=== PATIENT | male | born 1940 | race Caucasian/White ===

== ENCOUNTER 2016-06-12 12:19 | Day surgery (SDC) | payer MEDICARE ==
[2016-06-08 11:43] LABS: HEMATOCRIT 41.4 % (40.0-51.0)
[2016-06-08 11:53] LABS: BUN (BLOOD UREA NITROGEN) 31 MG/DL (6-23); CALCIUM, SERUM 8.7 MG/DL (8.5-10.4); CHLORIDE, SERUM 103 MMOL/L (96-112); CO2 (CARBON DIOXIDE) 28 MMOL/L (24-34); CREATININE 1.45 MG/DL (0.70-1.30); GFR AFRICAN AMERICAN 55 ML/MIN (>=60); GFR NON AFRICAN AMERICAN 47 ML/MIN (>=60); GLUCOSE, SERUM 90 MG/DL (60-99); POTASSIUM, SERUM 4.4 MMOL/L (3.5-5.3); SODIUM, SERUM 139 MMOL/L (135-148)
--- NOTE | ~2016-06-12 | OP ---
Record Of Operation [facility] [address] [place]. 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 PROCEDURE PERFORMED: 1. Wide local excision of left martinez cavum skin and cartilage, with 3.2 x 2.0 cm defect. 2. Full-thickness skin graft reconstruction of 3.2 x 2.0 cm defect, left supraclavicular fossa donor site. SURGEON: Bee Reilly M.D. CLIENT SERVICES COORDINATOR: None. ANESTHESIA: General. COMPLICATIONS: None. CONDITION: Stable to recovery. INDICATIONS: 76-year-old male, with recurrence of basal cell carcinoma of the left martinez cavum. PROCEDURE IN DETAIL: The patient identified in preoperative holding, taken back to the operating room, and placed supine on the operating room table. General anesthesia was established with LMA. The left ear was examined and a small ulcer was noted in bed around the scar. A 4 to 5 mm margin was marked around this ulceration, and infiltrated subcutaneously with 1% lidocaine with 1:100,000 epinephrine, a total of 3 mL. The time-out had been called, the patient and procedure were confirmed. After prepping and draping the patient in the standard fashion. The operation commenced. Using 2.5x loupe magnification and headlight illumination, I made an incision around the lesion, where it had been marked with a surgical ink pen, and used a 15 blade going down to the cartilage. This specimen was excised circumferentially leaving the cartilage intact. This specimen was inked at 12 o'clock, it had multiple positive margins. It was reexcised multiple times following this and told the margins were cleared. The defect ended up being 3.2 x 2.0 cm in dimension and we took the perichondrium with the specimen, so, we ended up taking the cartilage from the martinez cavum and skin grafting in the postauricular skin. The defect was 3.2 x 2.0 cm. The left supraclavicular full-thickness skin graft was harvested, defatted, and meshed with a 15 blade, and inset with 4-0 chromic suture. A Xeroform gauze bolster was placed and then the supraclavicular fossa defect was closed in layers using 4-0 Vicryl and a 5-0 running Prolene. The patient tolerated the procedure well. There were no complications. Record Of Operation [facility] [id number] [place]. [address] NAME: SHAMA RESENDEZ : 44 STATUS : REG [facility]#: [id number] AGE: 76 ADM/REG DATE : 06/12/16 MR#: [id number] REPORT SERV DATE: 06/12/16 DICTATED BY: BEE REILLY DATE: 06/12/16 REPORT STATUS : Draft TRANSCRIBED BY: ADDY DATE: 06/12/16 PH/ADDY Bee Reilly M.D. / [id number] CC: Bee Reilly M.D.
[~2016-06-12 12:19] MED LIST: BENICAR20 PO; CARDU4 PO; LEVOTHYROXIN112 MCG PO; LIPITOR20 PO; PROSCAR5 PO; TRAZ100 PO; XARELTO20 MG PO; XOPEN0.5ML INH; ZYRTEC ALLGY10 MG PO
== END 2016-06-12 21:39 | disposition home or self-care (01) ==
LOC: SDC 12:19
PROVIDERS: Specialist
PROC: 0HR3X73 Replacement of Left Ear Skin with Autologous Tissue Substitute, Full Thickness, External Approach (ICD-10-PCS; principal; 2016-06-12 14:00)
PROC: 0HB5XZZ Excision of Chest Skin, External Approach (ICD-10-PCS; 2016-06-12 14:00)
DX: C44.219 Basal cell carcinoma of skin of left ear and external auricular canal (principal); I10 Essential (primary) hypertension; E78.00 Pure hypercholesterolemia, unspecified; E03.9 Hypothyroidism, unspecified; J45.909 Unspecified asthma, uncomplicated; M19.90 Unspecified osteoarthritis, unspecified site; Z86.711 Personal history of pulmonary embolism; Z88.6 Allergy status to analgesic agent; Z88.8 Allergy status to other drugs, medicaments and biological substances; Z79.01 Long term (current) use of anticoagulants; Z79.899 Other long term (current) drug therapy; Z87.891 Personal history of nicotine dependence; Z86.19 Personal history of other infectious and parasitic diseases; Z86.718 Personal history of other venous thrombosis and embolism; Z98.890 Other specified postprocedural states; Z90.49 Acquired absence of other specified parts of digestive tract; Z90.89 Acquired absence of other organs
CPT/HCPCS: 80048; 85014; 85018; 88305; 88331; 93005; A9270-GY; J0690; J2250; J2370; J2405; J3010